=== PATIENT | male | born 1960 | race Caucasian/White ===

== ENCOUNTER 2017-04-25 21:16 | Observation (INO) ==
[2017-04-25] MEDS ORDERED: NORCO-10 PO ONE (23:00)
[2017-04-26 00:01] LABS: MANUAL DIFF NEEDED? NO
[2017-04-26 00:04] LABS: BASO% 0.3 % (0.0-0.8); EOS# 0.27 X1000 (0.0-0.7); EOS% 2.5 % (0.0-10.0); HEMATOCRIT 32.5 % (42.0-52.0); HEMOGLOBIN 10.8 g/dL (14.0-18.0); IMM GRAN# 0.03 X1000 (0.0-0.04); IMM GRAN% 0.3 % (0.0-0.5); LYMPH# 2.35 X1000 (1.2-3.4); LYMPH% 21.8 % (20.5-51.1); MCH 26.9 PG (27-31); MCHC 33.2 g/dL (33-37); MONO# 1.08 X1000 (0.11-0.59); MPV 10.7 FL (7.4-10.4); NEUT% 65.1 % (42.2-75.2); PLT 468 X1000 (130-400); RBC 4.01 XMIL (4.7-6.1)
[2017-04-26 00:39] LABS: AGAP 7; ALBUMIN 4.5 g/dL (3.5-5.0); ALKALINE PHOSPHATASE 81 U/L (32-122); BUN 30 mg/dL (8-22); CALCIUM 7.6 mg/dL (8.8-10.2); CHLORIDE 101 mmol/L (98-107); COSMO 288; GOT 15 U/L (10-34); GPT 11 U/L (10-44); LIPASE 62 U/L (13-60); POTASSIUM 3.5 mmol/L (3.5-5.1); SODIUM 141 mmol/L (136-145); TCO2 33 mmol/L (25-35); TOTAL BILIRUBIN 0.21 mg/dL (0.20-1.00); TOTAL PROTEIN 7.8 g/dL (6.3-8.3)
--- NOTE | 2017-04-26 01:02 | PROVIDER DOCUMENTATION ---
This chart was entered by Cassia Escobar Scribe, acting as scribe for Bryan Kay MD. HPI-Male Problem - General Chief Complaint: Groin Pain Stated Complaint: HERNIA PAIN Time Seen by Provider: 04/25/17 22:36 Source: patient Allergies/Adverse Reactions: Patient Allergies Allergy/AdvReac Type Severity Reaction Status Date / Time Penicillins Allergy Severe ANAPHYLAXIS Verified 04/25/17 23:17 opioids Allergy Unknown Uncoded 04/25/17 23:17 Home Medications: Home Medication List Medication Instructions Recorded Confirmed Last Taken Type Amlodipine [Norvasc] 5 mg PO DAILY #60 tablet 09/06/16 04/25/17 04/25/17 Rx Famotidine [Pepcid] 20 mg PO BID #60 tablet 09/06/16 04/25/17 04/25/17 Rx Citalopram Hydrobromide [Celexa] 20 mg PO DAILY 01/19/17 04/25/17 04/25/17 History Cyclobenzaprine [Flexeril] 10 mg PO TID 01/19/17 04/25/17 04/25/17 History Iron 18 mg PO DAILY 01/19/17 04/25/17 04/25/17 History LOVAstatin [Mevacor] 20 mg PO DAILY 01/19/17 04/25/17 04/25/17 History Meloxicam [Mobic] 15 mg PO DAILY 01/19/17 04/25/17 04/25/17 History Metformin [Glucophage] 500 mg PO BID 01/19/17 04/25/17 04/25/17 History Multivitamin [Multivitamins] 1 each PO DAILY 01/19/17 04/25/17 04/25/17 History Omeprazole 40 mg PO DAILY 01/19/17 04/25/17 04/25/17 History Ropinirole [Requip] 1 mg PO DAILY 01/19/17 04/25/17 04/25/17 History Hydrocodone/Acetaminophen [Bern 1 each PO Q4-6H PRN PRN #20 tablet 04/25/17 Unknown Rx 10-325 Tablet] - History of Present Illness-Male Nature of Presenting Problem: 56 Y/O M presents to ED with Male . Pt states that he was doing yard work stood up and suddenly felt pain in his right groin, took tramadol no help. Pt states 2 years inguinal hernia in the same location the pain is occurring. 3-4 day hx of passing black tarry stools 6-7 days. Location of Complaint: reports: groin Radiation: reports: none Quality of Pain: reports: aching Severity in ED: reports: severe Onset/Duration: reports: this evening Timing: reports: still present Context/Activities at Onset: reports: none Associated Symptoms: reports: inguinal mass Associated Symptoms: reports: denies symptoms, diarrhea Similar Symptoms Previously?: Yes Recently seen or treated by another doctor?: No Review of Systems - Adult - REVIEW OF SYSTEMS - ADULT Constitutional: denies: chills, fever Eyes: reports: no symptoms reported Ears, Nose, Mouth & Throat: reports: no symptoms reported Cardiovascular: reports: no symptoms reported Respiratory: reports: no symptoms reported Gastrointestinal: reports: rectal bleeding Genitourinary: reports: other (groin tenderness). denies: flank pain, frequent UTI's Musculoskeletal: reports: no symptoms reported Integumentary: reports: no symptoms reported Neurological: reports: no symptoms reported Psychiatric: reports: no symptoms reported Endocrine: reports: no symptoms reported Hematologic/Lymphatic: reports: no symptoms reported Allergic/Immunologic: reports: no symptoms reported All Other Systems: Reviewed and Negative Past History - Adult - PAST MEDICAL HISTORY-ADULT Review of Records: reports: Old Records Reviewed, Nursing Assessment Review, Medications Reviewed, Social history reviewed & non-contributory. Major Childhood Illnesses: reports: denies history Cardiovascular: reports: denies history Respiratory: reports: denies history Gastrointestinal: reports: denies history Obstetrical/Gynecological: reports: denies history Genitourinary: reports: denies history Musculoskeletal: reports: arthritis Neurological: reports: denies history Psychiatric: reports: denies history Endocrine/Immune: reports: denies history Other Conditions: reports: denies history - PRIOR SURGERIES/PROCEDURES Surgical/Procedure History: reports: reviewed, not pertinent - PRIOR HOSPITALIZATIONS Prior Hospitalizations: reports: for other non-related - IMMUNIZATION STATUS Childhood Immunizations: See Nurse Assessment Flu Vaccine: See Nurse Assessment - FAMILY HISTORY Family History: reviewed, not pertinent Physical Exam-General - CONSTITUTIONAL General Appearance: alert, no apparent distress - EYES Eyes: PERRL/EOMI, pink conjunctivae - HEAD, EARS, NOSE, MOUTH & THROAT HENMT: normocephalic/atraumatic, moist mucous membranes, normal ENT inspection, TMs normal, pharynx normal - NECK Neck: non-tender, full range of motion, supple, normal inspection - RESPIRATORY Respiratory: lungs clear, normal breath sounds - CARDIOVASCULAR Cardiovascular: regular rate, rhythm - GASTROINTESTINAL (ABDOMEN) Abdominal Exam: non tender, soft - GENITOURINARY Male Genitalia: inguinal tenderness (hernia noted right side) - LYMPHATIC Lymphatic: no adenopathy - MUSCULOSKELETAL Back Exam: normal inspection Extremity: normal range of motion - SKIN Integumentary: normal color, normal turgor - NEUROLOGIC Neurologic: grossly normal - PSYCHIATRIC Psych/Mental Status: normal mood/affect, normal thought content, normal thought process, oriented x 3 Progress - PLAN OF CARE/RESULTS Progress/Plan/Lab Results: Vital Signs - 8 hr 04/25/17 21:25 04/25/17 23:13 Temperature 98.1 F Pulse Rate 93 H 88 Respiratory Rate 16 16 Blood Pressure 119/71 118/68 O2 Sat by Pulse Oximetry 100 99 Laboratory Results - last 24 hr 04/25/17 04/25/17 23:30 23:30 WBC 10.78 RBC 4.01 L Hgb 10.8 L Hct 32.5 L MCV 81.0 MCH 26.9 L MCHC 33.2 RDW Std Deviation 16.5 H Plt Count 468 H MPV 10.7 H Immature Gran % (Auto) 0.3 Neut % (Auto) 65.1 Lymph % (Auto) 21.8 Davidson % (Auto) 10.0 H Eos % (Auto) 2.5 Baso % (Auto) 0.3 Immature Gran # (Auto) 0.03 Neut # (Auto) 7.02 H Lymph # (Auto) 2.35 Davidson # (Auto) 1.08 H Eos # (Auto) 0.27 Baso # (Auto) 0.03 Sodium 141 Potassium 3.5 Chloride 101 Carbon Dioxide 33 Anion Gap 7 BUN 30 H Creatinine 1.2 Estimated GFR/1.73 m2 > 60 BUN/Creatinine Ratio 25 Glucose 106 H Calculated Osmolality 288 Calcium 7.6 L Total Bilirubin 0.21 AST 15 ALT 11 Alkaline Phosphatase 81 Total Protein 7.8 Albumin 4.5 Globulin 3.3 Albumin/Globulin Ratio 1.4 Lipase 62 H Orders Category Date Time Status CBC WITH ELECTRONIC DIFF [HEME] Stat Lab 04/25/17 23:30 Completed CMP [COMPREHENSIVE METABOLIC PANEL] [CHEM] Stat Lab 04/25/17 23:30 Completed LIPASE [CHEM] Stat Lab 04/25/17 23:30 Completed TYPE & SCREEN [BBK] Stat Lab 04/25/17 23:30 Received 0.9% Sodium Chloride Inj [Ns] 80 ml Med 04/26/17 01:15 Ordered Pantoprazole [Protonix] 80 mg IV 10 mls/hr Hydrocodone/APAP 10 mg/325 mg [Bern-10] Med 04/25/17 23:00 Discontinued 1 each PO NOW ONE Pantoprazole [Protonix] 80 mg Med 04/26/17 01:03 Active 0.9% Sodium Chloride Inj [Ns] 80 ml IV NOW Result Diagrams: 04/25/17 23:30 04/25/17 23:30 Departure - Departure Date of Disposition Decision: 04/26/17 Time of Disposition Decision: 01:14 DIAGNOSIS: Right inguinal hernia, GI bleed Disposition: ADMITTED INPATIENT 09 Certified Medical Emergency: Emergent Condition: Good Prescriptions: Hydrocodone/Acetaminophen [Bern 10-325 Tablet] 1 each PO Q4-6H PRN PRN #20 tablet PRN Reason: Pain Referrals and Follow-Ups: RADHA ALVA [Primary Care Provider] - Discharge Education: Inguinal Hernia, Adult, Care After - Critical Care Note This patient required my direct & personal management of CC.: No This chart was documented by the indicated scribe, (Cassia Escobar Scribe) and accurately reflects the services I performed and decisions made by me, Bryan Kay MD, as attested by the provider's signature.
[2017-04-26] MEDS ORDERED: PROTONIX 80 MG in NS 80 ML IV ONE (01:03)
[2017-04-26] MEDS ORDERED: PROTONIX 80 MG in NS 80 ML IV SCH (01:15)
[2017-04-26] MEDS ORDERED: NS 1,000 ML IV ONE ×2 (01:41→01:45)
[2017-04-26] MEDS ORDERED: MORPHINE IV PRN (02:56)
[2017-04-26] MEDS ORDERED: HUMALOG SUBQ ONE (02:56)
[2017-04-26] MEDS ORDERED: SODIUM CHLORIDE 0.9% INJ ONE (02:56)
[2017-04-26] MEDS ORDERED: ZOFRAN IV PRN (02:56)
[2017-04-26 03:36] LABS: HEMOGLOBIN A1C 5.8 % (4.8-6.0)
[2017-04-26 04:02] LABS: FERRITIN 98 ng/mL (30-400)
[2017-04-26] MEDS: NS 1,000 ML IV SCH ×2 (04:20→12:18)
--- NOTE | 2017-04-26 04:40 | HISTORY AND PHYSICAL ---
REASON FOR ADMISSION: Passage of dark melenic stools for the last 1 week and bright red blood for the last 2-3 weeks intermittently. HISTORY OF PRESENT ILLNESS: Mr. Wagner Veras is a 56-year-old male with past medical of hypertension, CVA, reflux disease, non-obstructive coronary artery disease, who came in primarily because earlier yesterday, he was bending down to clean his storm door. As he stood up, he felt a pop and a sharp pain in his right groin with the pain shooting down his leg and had and he developed sudden numbness of his entire leg. He said the pain persisted all day yesterday, localized to his right groin, worse with movement. The aforementioned numbness in his legs resolved after a few minutes. He came to the ER because the pain had continued without any relief and it was limiting his new ambulation. During the course of the questioning in the ER, he admitted to the nurse that he had been passing black stools for the last 1 week. Even before then, he said that for the last 2-3 weeks, he had been having intermittent bright red blood. About 3 days ago, he doubled up on his Mobic prescription which is 50 mg daily to b.i.d. because of hip pain. He admits to having nausea for the last few days but no abdominal pain per se. No vomiting and no coffee grounds. No fever or chills. No cardiorespiratory complaints. He does admit to having postural lightheadedness for the last 4 days and very mild dyspnea on exertion. No bleeding from any orifice. No altered bowel movements. No weight loss. No focal weakness, numbness or tingling. No leg swelling, PND or orthopnea. He does have bilateral hip arthralgias in the morning but no joint swelling or rash elsewhere. REVIEW OF SYSTEMS: A 14-system is reviewed and negative; positive findings per HPI. ALLERGIES: Penicillin and questionable allergy to opioids, and now SHUBHAM inhibitors. MEDICATION: Norvasc 5 mg daily, Celexa 20 mg daily, Flexeril 10 mg t.i.d., Pepcid 200 mg b.i.d., hydrocodone 1 q.4 hours p.r.n., iron 80 mg daily, Mevacor 20 mg daily, meloxicam 15 mg daily, although he started taking it b.i.d., metformin 500 mg b.i.d., multivitamin tablets once a day, omeprazole 40 mg daily, and Requip 1 mg daily. PAST MEDICAL HISTORY: Includes diabetes otherwise no additional past medical history. FAMILY HISTORY: Negative for diabetes. Only notable for COPD and congestive heart failure. SOCIAL HISTORY: Now smokes E-cigarettes. No alcohol or illicit drug use. He is . PAST SURGICAL HISTORY: He has had a tonsillectomy, inguinal hernia repair on the right side, total right knee replacement, 2 hip surgeries last year, cyst that was excise on his neck. LABORATORY WORK: White count 10,000, hemoglobin 10 and hematocrit 32, platelets 468,000 with normal differential. BUN is 30, creatinine 1.2, glucose 106, lipase 62. PHYSICAL EXAMINATION: GENERAL: Middle-aged man who is not in acute distress. He is A and O x3 with normal mood and affect. HEENT: Head is normocephalic, atraumatic. Eyes, ERNIE, EOMI. He is anicteric and not pale. ENT and oropharyngeal exam is grossly normal. No central cyanosis. VITAL SIGNS: Blood pressure is 118/68, heart rate 88, respirations 16, temperature is 98.1, and 99% on room air. NECK: Supple. No JVD or carotid bruit or thyromegaly. No lymphadenopathy palpated. CHEST: Clear to auscultation with good air entry to both lung manning. CARDIOVASCULAR: First and second heart sounds heard. No gallops, murmurs, or rubs. Rhythm is regular. ABDOMEN: Protuberant, soft. There is no tenderness anywhere. No masses or organomegaly. Bowel sounds are hypoactive. RECTAL: Exam is deferred at this time. GROIN: The patient has a slight right inguinal hernia which expands with coughing. More appreciated by palpation and is reducible. No scrotal swelling. EXTREMITIES: No edema, clubbing or peripheral cyanosis. Pulses distally in all extremities are intact and symmetrical with good volume. NEUROLOGICAL: No focal deficits. SKIN: Intact with no breakdown or erythema. MUSCULOSKELETAL: Exam is grossly normal. ASSESSMENT: 1. Upper gastrointestinal bleed, probably secondary to excessive nonsteroidal anti-inflammatory drugs use. 2. hemorrhagic anemia secondary to #1. 3. Right inguinal hernia. 4. Coronary artery disease. 5. Type 2 diabetes. 6. Hypertension. 7. Hyperlipidemia. 8. Reflux disease. PLAN: At this time, we will consult Dr. Mendez, who is his software support specialist for possible EGD later today. Do repeat another hemoglobin and hematocrit q.12 hours due to this patient actively bleeding. Start patient on IV PPIs. Will transfuse if his hematocrit is 25 or less. In the interim, IV fluid bolus will be initiated and continue with crystalloid fluid replacement. We will consult Dr. Gale to see patient regarding the hernia in his right inguinal area. Other medical issues will be addressed and his blood pressure medications will be held if systolic blood pressure is less than 150 to avoid hypotension. His diabetes will be controlled with subcutaneous insulin and monitor Accu-Cheks. I will hold Celexa for awhile because as this too can affect platelet function and potential increase bleeding. Discontinue Mobic also. Anemia workup was ordered and needs to be followed. cc: Juan Griffith MD
[2017-04-26 07:38] LABS: HEMATOCRIT 32.7 % (42.0-52.0); HEMOGLOBIN 10.7 g/dL (14.0-18.0)
[2017-04-26] MEDS ORDERED: PEPCID PO SCH (09:00)
[2017-04-26] MEDS ORDERED: MEVACOR PO SCH (09:00)
[2017-04-26] MEDS ORDERED: REQUIP PO SCH (09:00)
[2017-04-26] MEDS ORDERED: THERA M PLUS PO SCH (09:00)
[2017-04-26] MEDS ORDERED: NORVASC PO SCH (09:00)
[2017-04-26] MEDS ORDERED: FERROUS SULFATE PO SCH (09:00)
--- NOTE | 2017-04-26 11:46 | Diag Imaging Result Doc PS360 ---
EXAM: CT ABD/PELVIS ORAL CONTR ONLY INDICATION: right groin pain TECHNIQUE: COMPARISON: None. FINDINGS: There are no renal or ureteral stones and there is no evidence of acute obstructive uropathy. The pelvis is partially obscured by beam hardening artifact related to right hip arthroplasty. The urinary bladder is grossly unremarkable, however. There is no evidence of a significant inguinal hernia. However, there is fat opacification near the opening of the inguinal canal on the right that is nonspecific. It may represent focal fat necrosis. This could also represent postsurgical change if there has been a prior hernia repair. There is uncomplicated diverticulosis coli. There is no evidence of bowel obstruction. No focal inflammatory changes, free abdominal gas, or free fluid is identified, otherwise. The remainder of the solid viscera of the abdomen and pelvis and the remainder of the GI tract are essentially unremarkable. IMPRESSION: 1.No significant inguinal hernia identified. However, there is nonspecific focal fat opacification near the opening of the right inguinal canal. Please see above discussion. 2.Other incidental/nonacute findings detailed above. Electronically signed by Khang Leung 04/26/2017 11:44 AM
[2017-04-26] MEDS ORDERED: PROTONIX IV SCH (12:00)
[2017-04-26] MEDS ORDERED: SODIUM CHLORIDE 0.9% INJ SCH (12:00)
--- NOTE | 2017-04-26 12:40 | CONSULTATION ---
DATE OF CONSULTATION: 04/26/2017 HISTORY AND REASON FOR CONSULTATION: For evaluation of this patient with black stool. HISTORY OF PRESENT ILLNESS: This is a 56-year-old gentleman who is known to me from office visit. The patient has history of gastritis, gastroesophageal reflux disease, diverticulosis, and history of colon polyps. The patient was brought to the emergency room because of right lower quadrant pain. At the time of evaluation in the emergency room, the patient was found to have suspected right inguinal hernia. The pain was apparently secondary to right inguinal hernia. On questioning, the patient said that he had been having some rectal bleeding for the past 1 month on and off, and on for the past 1 week he had black stools occasionally. He also said to me that he had it for only 3 days, and since yesterday there had not been any bowel movement. He said that he had bad pain in his right hip and so he doubled up on his Mobic. He was taking 15 mg a day and instead of that he took 2 of those tablets a day for a few days, and then he started having these black stools. The patient was seen by me since 2014. On 01/24/2017, for chronic anemia, he had undergone esophagogastroduodenoscopy and colonoscopy. The esophagogastroduodenoscopy revealed erosive gastritis involving the antrum and the body of the stomach. He was asked to stop all nonsteroidal anti-inflammatory agents and continue the omeprazole which he was on. The patient's colonoscopy revealed that he has significant diverticulosis of the left colon. He had no polyps this time. He also had internal hemorrhoids. PAST MEDICAL HISTORY: 1. Significant arthritis of the hips. 2. Allergic rhinitis. 3. Hypertension. 4. Obstructive sleep apnea. 5. Basal cell carcinoma of the nose. Had received treatment with radiation. 6. Restless legs syndrome. 7. Right inguina hernia with surgery. 8. Hip and knee replacement. SOCIAL HISTORY: He is a current every-day smoker. Occasionally uses alcohol. He is and living with his . FAMILY HISTORY: Father had prostate cancer. Mother had ovarian cancer. There is history of heart disease, hypertension, and history of diabetes in the family. REVIEW OF SYSTEMS: Gastrointestinal: Appetite is fair. There is no nausea or vomiting. There is some vague upper abdominal pain present. He does not have any serious constipation. Had black stools yesterday. A month ago, had seen some red blood in stool, which he thinks is from hemorrhoids. PHYSICAL EXAMINATION: Vital Signs: His temperature is 97.4 degrees, pulse rate is 82 per minute, respiratory rate is 70, and blood pressure is 115/78. Skin: Warm and dry. Mucous membranes are moist. Neck: Supple. There is no thyromegaly. Cardiac: Both heart sounds are heard. Rhythm is regular. No murmur. Lungs: Reveal a few crackles in the bases and slight hyperresonance on percussion. Abdomen: Soft, nontender, not protuberant. No masses felt. Bowel sounds are heard. On examination of the groin, there is some tenderness present, but I am not sure whether I am feeling an actual hernia. Musculoskeletal: The movement of the right hip joint is slightly limited. Extremities: Free of any edema. LABORATORY DATA: At the time of entry, the patient's WBC count was 10.78, the hemoglobin was 10.8, hematocrit 32.5. Repeat hemoglobin was 10.7 and hematocrit 32.7. The platelet count was 468,000. Sodium 141, potassium 3.5, chloride 101, CO2 is 33, BUN 30, creatinine 1.2. Glucose is 106. Hemoglobin A1c is 5.8. Calcium 7.6. Iron is 38. Ferritin 98. Total bilirubin is 0.21. AST is 15, ALT is 11. Lipase is 62. Vitamin B12 is low at 206. Folate is also low at 9. IMPRESSIONS: 1. Anemia, probably multifactorial. 2. History of black stools. RECOMMENDATION: This patient had a recent esophagogastroduodenoscopy and colonoscopy, and he was not supposed to take any nonsteroidal anti-inflammatory agents. I am sure that there was some aggravation of his erosive gastritis, which probably was the cause of the bleeding at that time. Of course, an ulcer is a possibility, but at this point, since there was recent endoscopy procedure done, there is no indication for repeating it unless the hemoglobin and hematocrit drop further. I have explained that to the patient and told him that we will watch the patient. Dr. Gale has already seen him regarding his hernia and a CT scan is being done. Based on the results of the CT scan, we will continue to follow the patient. If the hemoglobin and hematocrit drop, perhaps an esophagogastroduodenoscopy might be needed. He is already placed on the pantoprazole IV, which is appropriate. After evaluation by Dr. Gale and Dr. Walton he could go home. He needs to see me in the office next week to evaluate for any drop in Hct. to consider another EGD. Asked him to avoid any NSAIDS. cc: Cam Woody MD MTDD
--- NOTE | 2017-04-26 13:08 | CONSULTATION ---
DATE OF CONSULTATION: 04/26/2017 CHIEF COMPLAINT: Right groin pain. HISTORY OF PRESENT ILLNESS: Wagner Veras is a 56-year-old male who is well known to me. I did an anterior total hip arthroplasty on him a couple of years ago. He has continued to have some mild pain in this hip, but otherwise has done well. He initially began having severe pain in his hip with numbness in his leg, he states and that was admitted to the hospital. PHYSICAL EXAMINATION: General: Well-developed, well-nourished male. He is alert, oriented, and cooperative. There is some groin tenderness to palpation put excellent range of motion of his hip and no pain with range of motion of his hip. The leg is neurovascularly intact. His CT scan shows the prosthesis appears to be in good position. There is no sign of infection. IMPRESSION: Stable right total hip with groin pain of undetermined etiology. PLAN: From an orthopedic standpoint, he can be discharged home. He has requested tramadol which I am okay with him taking at home. He can follow up with me as an outpatient in a couple weeks to evaluate his hip, if he continues to have pain. cc: Robert Walton MD
[2017-04-26 13:14] VITALS: BP 127/75
[2017-04-26] MEDS ORDERED: TYLENOL PO PRN (13:36)
[2017-04-26] MEDS ORDERED: ULTRAM PO PRN (13:37)
--- NOTE | 2017-04-26 19:27 | DISCHARGE SUMMARY ---
ADMISSION DATE: 04/26/2017 DISCHARGE DATE: 04/26/2017 DISCHARGE DIAGNOSES: 1. Right inguinal pain, likely related to a muscle pain probably the iliopsoas. 2. Upper gastrointestinal bleed. 3. Anemia. 4. Right inguinal hernia. 5. Coronary artery disease. 6. Type 2 diabetes. 7. Hypertension. 8. Hyperlipidemia. 9. GERD. CONSULTATIONS: 1. Orthopedic surgery Dr. Walton 2. Gastroenterology Department Dr. Mendez. 3. Hand Surgery Department. HOSPITAL COURSE: A 56-year-old male with a past medical history of hypertension, CVA, GERD and coronary artery disease who came to the emergency department because of pain at the level of his right groin with the pain shooting down his leg and had developed some numbness of his entire leg, apparently everything happened after cleaning his storm door. He was bending down and then he stood up and felt a pop. Apparently also this patient has been passing black stools for the last week. Apparently he has been taking Mobic because of the pain. This patient was evaluated by gastroenterology department who states that he has been recently scoped and no further endoscopic management at this moment. He wants this patient to follow up with Dr. Mendez as an outpatient. Also, orthopedic surgery hand surgery evaluated this patient. They do not have any acute recommendations for now. I examined the patient as well and I do believe that this is a problem with the iliopsoas. He has no pain with abduction or adduction of the right lower extremity but the pain only is there if we do some flexion of the hip. He will be discharged with Tylenol and tramadol. Followup with Dr. Walton his orthopedic surgeon. PHYSICAL EXAMINATION: Temperature 98.7 degrees, pulse 85, respiratory rate 20, blood pressure 127/75, and oxygen saturation 95% on room air. HEENT: Head normocephalic. No trauma. PERRLA. Neck: Supple. No JVD. No masses. Central trachea. Chest: Clear to auscultation. No wheezing. No rales. Abdomen: Soft, nontender, nondistended. Inguinal area, he has right pain with palpation at the level of the inguinal area on the right side that increased with flexion of the hip but it is not reproducible with abduction or adduction of the hip. Extremities: No edema, clubbing and no cyanosis. Neurological: The patient is alert and oriented x3. No focal deficits. LABORATORY: Hemoglobin 10.7, hematocrit 32.7, glucose 94. FOLLOW UP: 1. Follow by with Dr. Mendez, gastroenterology, he needs to call for an appointment. 2. Follow up with Dr. Walton, from orthopedic surgery in 1 or 2 weeks if the pain persists. DISCHARGE MEDICATIONS: 1. Acetaminophen 650 mg p.o. q.6 hours as needed. 2. Tramadol 50 mg p.o. q.6 hours as needed. 3. Famotidine 20 mg p.o. twice a day. 4. Amlodipine 5 mg p.o. daily. 5. Multivitamin 1 tablet p.o. daily. 6. Iron 80 mg p.o. daily. 7. Ropinirole 1 mg p.o. daily. 8. Lovastatin 20 mg p.o. daily. 9. Metformin 500 mg twice a day. 10. Citalopram 20 mg p.o. daily. 11. Omeprazole 40 mg p.o. daily. cc: Cam Woody MD
== END 2017-04-26 14:48 | disposition home or self-care (01) ==
LOC: ED 21:16 → 3N 04-26 01:48 → INTOOBSV 04-26 01:48 → SUATTDRO 04-26 01:48
PROVIDERS: ATTEND Internal Medicine

== ENCOUNTER 2017-06-30 16:47 | Observation (INO) ==
--- NOTE | 2017-06-30 17:00 | PROVIDER DOCUMENTATION ---
HPI-General Adult - General Chief Complaint: Altered Mental Status Stated Complaint: ams +etoh Time Seen by Provider: 06/30/17 16:55 Source: patient, EMS Allergies/Adverse Reactions: Patient Allergies Allergy/AdvReac Type Severity Reaction Status Date / Time Penicillins Allergy Severe ANAPHYLAXIS Verified 06/30/17 18:43 opioids Allergy Unknown Uncoded 06/30/17 18:43 Home Medications: Home Medication List Medication Instructions Recorded Confirmed Last Taken Type Amlodipine [Norvasc] 5 mg PO DAILY #60 tablet 09/06/16 06/30/17 06/28/17 Rx Famotidine [Pepcid] 20 mg PO BID #60 tablet 09/06/16 06/30/17 06/28/17 Rx Citalopram Hydrobromide [Celexa] 20 mg PO DAILY 01/19/17 06/30/17 06/28/17 History Iron 18 mg PO DAILY 01/19/17 06/30/17 06/28/17 History LOVAstatin [Mevacor] 20 mg PO DAILY 01/19/17 06/30/17 06/28/17 History Metformin [Glucophage] 500 mg PO BID 01/19/17 06/30/17 06/28/17 History Multivitamin [Multivitamins] 1 each PO DAILY 01/19/17 06/30/17 06/28/17 History Ropinirole [Requip] 1 mg PO DAILY 01/19/17 06/30/17 06/28/17 History Acetaminophen [Tylenol] 650 mg PO Q6H PRN PRN #30 tablet 04/26/17 06/30/1706/28 Rx Omeprazole 40 mg PO DAILY #30 capsule. 04/26/17 06/30/17 06/28/17 Rx Tramadol [Ultram] 50 mg PO Q6H PRN PRN #30 tablet 04/26/17 06/30/17 06/28/17 Rx - History of Present Illness -Gen Adult Nature of Presenting Problems: CC: "Things just haven't been going right". Patient presents via ems. Call went out to them for altered mental status. Apparently he has been drinking today. Pt answers all questions appropriately but cannot tell me exactly why he called an ambulance today. He denies injury, neck pain, back pain, cp, dypsnea, abd pain, n/v, gait problems. Denies SI, HI, AVH. Associated Symptoms: denies: anxiety, arm pain, chest pain, cough, dizziness, fatigue, fever/chills, headaches, joint pain, muscle aches, nausea, seizure, shortness of breath, pain with inspiration, syncope, vomiting, weakness, trouble walking Similar Symptoms Previously?: No Recently seen or treated by another doctor?: No Review of Systems - Adult - REVIEW OF SYSTEMS - ADULT Constitutional: reports: no symptoms reported. denies: fever Eyes: reports: no symptoms reported Ears, Nose, Mouth & Throat: reports: no symptoms reported Cardiovascular: reports: no symptoms reported Respiratory: reports: no symptoms reported Gastrointestinal: reports: no symptoms reported Genitourinary: reports: no symptoms reported Musculoskeletal: reports: no symptoms reported Integumentary: reports: no symptoms reported Neurological: reports: no symptoms reported Psychiatric: reports: no symptoms reported Endocrine: reports: no symptoms reported Hematologic/Lymphatic: reports: no symptoms reported Allergic/Immunologic: reports: no symptoms reported All Other Systems: Reviewed and Negative Past History - Adult - PAST MEDICAL HISTORY-ADULT Review of Records: reports: Old Records Reviewed, Nursing Assessment Review, Medications Reviewed, Social history reviewed & non-contributory. Major Childhood Illnesses: reports: denies history Cardiovascular: reports: denies history Respiratory: reports: denies history Gastrointestinal: reports: denies history Obstetrical/Gynecological: reports: denies history Genitourinary: reports: denies history Musculoskeletal: reports: arthritis Neurological: reports: denies history Psychiatric: reports: denies history Endocrine/Immune: reports: denies history Other Conditions: reports: denies history - PRIOR SURGERIES/PROCEDURES Surgical/Procedure History: reports: reviewed, not pertinent - PRIOR HOSPITALIZATIONS Prior Hospitalizations: reports: for other non-related - IMMUNIZATION STATUS Childhood Immunizations: See Nurse Assessment Flu Vaccine: See Nurse Assessment - FAMILY HISTORY Family History: reviewed, not pertinent - SOCIAL HISTORY Smoking: denies Substance Use: none/never Alcohol Use Frequency: every day Living Situation: family Physical Exam-General - PHYSICAL EXAM-ADULT Initial Vital Signs Reviewed: Yes - CONSTITUTIONAL General Appearance: appears well, alert, no apparent distress - EYES Eyes: PERRL/EOMI, pink conjunctivae - HEAD, EARS, NOSE, MOUTH & THROAT HENMT: normocephalic/atraumatic - NECK Neck: non-tender, full range of motion, supple - RESPIRATORY Respiratory: lungs clear, normal breath sounds - CARDIOVASCULAR Cardiovascular: normal peripheral pulses, regular rate, rhythm - GASTROINTESTINAL (ABDOMEN) Abdominal Exam: non tender, soft, no organomegaly - MUSCULOSKELETAL Back Exam: normal inspection Extremity: non-tender, normal gait, normal inspection - SKIN Integumentary: normal color, normal turgor, warm/dry - NEUROLOGIC Neurologic: electronics engineering technologist II-XII nml as tested, grossly normal, no motor/sensory deficits . negative: abnormal gait - PSYCHIATRIC Psych/Mental Status: normal mood/affect, oriented x 3 Progress - PLAN OF CARE/RESULTS Progress/Plan/Lab Results: Orders Category Date Time Status Saline Loc NOW Care 06/30/17 16:48 Active CHEST-2 VIEWS [RAD] Stat Exams 06/30/17 16:[address] HEAD W/O CONTRAST [CT] Stat Exams 06/30/17 16:48 Ordered ALCOHOL BLOOD Stat Lab 06/30/17 16:48 Uncollected CBC WITH ELECTRONIC DIFF [HEME] Stat Lab 06/30/17 16:48 Uncollected CK PROFILE [SP CHEM] Stat Lab 06/30/17 16:48 Uncollected COMPREHENSIVE METABOLIC PANEL [CHEM] Stat Lab 06/30/17 16:48 Uncollected MAGNESIUM [CHEM] Stat Lab 06/30/17 16:48 Uncollected PROTIME WITH INR [COAG] Stat Lab 06/30/17 16:48 Uncollected PTT [COAG] Stat Lab 06/30/17 16:48 Uncollected TROPONIN T Stat Lab 06/30/17 16:48 Uncollected UA NIMS W/REFLEX CULT [URINALYSIS] Stat Lab 06/30/17 16:48 Uncollected URINE DRUG SCREEN Stat Lab 06/30/17 16:48 Uncollected EKG [EKG] Stat Ther 06/30/17 16:48 Ordered Result Diagrams: 06/30/17 17:45 06/30/17 17:45 - CHANGE OF SHIFT REPORT (ED Provider) Report Given and Care Transferred to:: Dr. Rodriguez Time of Transfer: 18:20 Items Pending: Labs Departure - Departure Date of Disposition Decision: 06/30/17 Time of Disposition Decision: 20:09 DIAGNOSIS: Wernicke encephalopathy, Hypomagnesemia, Alcoholism /alcohol abuse Disposition: ADMITTED INPATIENT 09 Certified Medical Emergency: Emergent Condition: Fair Referrals and Follow-Ups: RADHA ALVA [Primary Care Provider] - - Critical Care Note This patient required my direct & personal management of CC.: No Attestation - Physician/ AIDEE Attestation Patient care was provided by Advanced Practice Provider:: No The physician spent face to face time with patient:: Yes Advanced Practice Provider documentation review:: Supervising physician onsite and consulted in the evaluation and care of this patient. The physician did have a face to face encounter with the patient.
--- NOTE | 2017-06-30 17:40 | Diag Imaging Result Doc PS360 ---
CT HEAD W/O CONTRAST - 06/30/2017 INDICATION: ams TECHNIQUE: A CT dose reduction protocol was used. COMPARISON: None FINDINGS: The ventricles and sulci are normal in size and contour. No intracranial mass or hemorrhage. The skull is intact. The sinuses mastoids and middle ears are clear. IMPRESSION: Negative exam. Electronically signed by Pardeep Pizarro 06/30/2017 5:38 PM
[2017-06-30 18:04] LABS: MANUAL DIFF NEEDED? NO
[2017-06-30 18:16] LABS: BASO% 0.4 % (0.0-0.8); EOS# 0.21 X1000 (0.0-0.7); HEMATOCRIT 37.5 % (42.0-52.0); HEMOGLOBIN 12.5 g/dL (14.0-18.0); IMM GRAN# 0.02 X1000 (0.0-0.04); IMM GRAN% 0.3 % (0.0-0.5); LYMPH# 2.17 X1000 (1.2-3.4); LYMPH% 31.3 % (20.5-51.1); MCH 26.7 PG (27-31); MCHC 33.3 g/dL (33-37); MCV 80.1 FL (81-99); MONO% 14.4 % (1.7-9.3); MPV 11.4 FL (7.4-10.4); NEUT% 50.6 % (42.2-75.2); PLT 153 X1000 (130-400); RBC 4.68 XMIL (4.7-6.1)
[2017-06-30 18:19] LABS: BILIRUBIN URINE NEGATIVE (NEGATIVE); BLOOD URINE TRACE (NEGATIVE); COLOR YELLOW; GLUCOSE URINE NEGATIVE (NEGATIVE); LEUKOCYTES URINE NEGATIVE (NEGATIVE); NITRITE URINE NEGATIVE (NEGATIVE); PH URINE 6.5; PROTEIN URINE 100 mg/dL (NEGATIVE); SP GRAVITY URINE 1.015; TURBIDITY URINE CLEAR (CLEAR); URINE CULTURE NEEDED? NO; URINE MICRO REVIEW NEEDED? NO; URINE SOURCE CLEAN CATCH; UROBILINOGEN URINE 2 mg/dL (NORMAL)
[2017-06-30 18:20] LABS: UR EPITHELIAL CELLS <10 /HPF (<10); URINE BACTERIA NEGATIVE /HPF; URINE RBC <10 /HPF (<10); URINE WBC <10 /HPF (<10)
[2017-06-30 18:35] LABS: UR AMPHETAMINES MT NONE DETECTED (NONE DETECT); UR BARBITUATES MT NONE DETECTED (NONE DETECT); UR BENZODIAZ MT NONE DETECTED (NONE DETECT); UR CANNABIS MEDTOX NONE DETECTED (NONE DETECT); UR COCAINE MT NONE DETECTED (NONE DETECT); UR METHADONE MEDTOX NONE DETECTED (NONE DETECT); UR OPIATES MT NONE DETECTED (NONE DETECT); UR OXYCODONE MEDTOX NONE DETECTED (NONE DETECT); UR PCP MEDTOX NONE DETECTED (NONE DETECT)
[2017-06-30 18:39] LABS: INR 1.04; PTT 27.1 Seconds (22.0-36.0)
[2017-06-30 18:45] LABS: AGAP 20; ALBUMIN 4.4 g/dL (3.5-5.0); ALKALINE PHOSPHATASE 89 U/L (32-122); BUN 10 mg/dL (8-22); CALCIUM 7.8 mg/dL (8.8-10.2); CHLORIDE 97 mmol/L (98-107); CK PROFILE 87 U/L (24-204); COSMO 280; GOT 93 U/L (10-34); GPT 56 U/L (10-44); MAGNESIUM 0.8 mg/dL (1.5-2.7); POTASSIUM 3.3 mmol/L (3.5-5.1); SODIUM 141 mmol/L (136-145); TCO2 24 mmol/L (25-35); TOTAL BILIRUBIN 0.29 mg/dL (0.20-1.00); TOTAL PROTEIN 7.7 g/dL (6.3-8.3)
[2017-06-30] MEDS ORDERED: MAGNESIUM SULFATE 2 GM/S.W.I. 2 GM/50 ML IVPB IV ONE ×2 (18:48→20:15)
--- NOTE | 2017-06-30 19:14 | Diag Imaging Result Doc PS360 ---
CHEST-2 VIEWS - 06/30/2017 INDICATION: ams TECHNIQUE: COMPARISON: 08/15/2016 FINDINGS: The lungs are normally expanded and clear. Heart size and mediastinal contours are normal. No pneumothorax or pleural effusion. IMPRESSION: Negative exam. Electronically signed by Pardeep Pizarro 06/30/2017 7:12 PM
[2017-06-30] MEDS ORDERED: THIAMINE 100 MG in NS 50 ML IV ONE (19:15)
[2017-06-30] MEDS ORDERED: KLOR-CON PO ONE (20:16)
[2017-06-30] MEDS ORDERED: NS 1,000 ML IV ONE (21:19)
[2017-06-30] MEDS ORDERED: TYLENOL PO PRN (21:19)
[2017-06-30] MEDS ORDERED: ZOFRAN IV PRN (21:19)
[2017-06-30] MEDS ORDERED: ULTRAM PO PRN (21:19)
[2017-06-30] MEDS ORDERED: ATIVAN IV PRN (21:50)
[2017-06-30] MEDS: THIAMINE 100 MG, FOLIC ACID 1 MG, M.V.I.-12 10 ML, MAGNESIUM SULFATE 1 GM, POTASSIUM CH... IV SCH ×6 (21:52)
[2017-07-01] MEDS: DOXYCYCLINE PO SCH ×2 (00:03→23:02)
[2017-07-01] MEDS: NORVASC PO SCH ×2 (00:03→23:03)
[2017-07-01] MEDS: REQUIP PO SCH ×2 (00:03→23:02)
[2017-07-01] MEDS: LIBRIUM PO SCH ×5 (00:03→23:03)
[2017-07-01] MEDS: CELEXA PO SCH ×2 (00:04→23:02)
[2017-07-01] MEDS: THERA M PLUS PO SCH ×2 (00:04→23:02)
[2017-07-01] MEDS: MEVACOR PO SCH ×2 (00:04→23:02)
[2017-07-01] MEDS: FERROUS SULFATE PO SCH ×2 (00:04→23:02)
[2017-07-01] MEDS: GLUCOPHAGE PO SCH ×3 (00:04→23:03)
--- NOTE | 2017-07-01 02:24 | HISTORY AND PHYSICAL ---
PRIMARY CARE PROVIDER: Dr. Myranda Raphael. DATE AND TIME OF HISTORY AND PHYSICAL: 06/30/2017 at 20:30. CHIEF COMPLAINT: Altered mental status. HISTORY OF PRESENT ILLNESS: Mr. Veras is a 57-year-old, male who presented to the ER this afternoon at approximately 16:45 by EMS. Patient's family arrived home this afternoon to find him confused. They stated that the patient did not recognize his granddaughter. He did admit to drinking today. The patient states that he does have frequent alcohol use though this is not every day. He states that on the days that he does drink he drinks up to a fifth of liquor though may go a few days or a few weeks without drinking. Other than this brief period of confusion, the patient denied any other symptoms. He denied any headache, dizziness, lightheadedness, speech problems, weakness, numbness or tingling in the extremities or ataxia. The patient does report a previous history of a CVA approximately 20 years ago for which he does have some residual short-term memory problems. His , who was at bedside, did state that it is not uncommon for him to occasionally have problems with identifying friends and family. He also denied any chest pain, shortness of breath, abdominal pain, nausea, vomiting though he does report problems with chronic diarrhea and this has been ongoing for 6 years. He denies any urinary symptoms or swelling, pain, numbness or tingling in extremities. The patient was most recently admitted to the hospital on 04/26/2017 for gastrointestinal bleeding. The patient does have a previous history of erosive gastritis. He was discharged to follow up with Dr. Mendez. The patient states that since being discharged he has been seen by Dr. Mendez. Upon evaluation in the ER, the patient was found to be alert and oriented. He had no neurological deficits present at this time. A CT head was performed which showed no acute intracranial abnormalities. The patient's laboratory results did reveal hypomagnesium ans mild hypokalemia. Patient's serum alcohol was 303. Given the patient's neurological symptoms and history of alcohol abuse as well as electrolyte abnormalities, he will be admitted for further treatment and evaluation. REVIEW OF SYSTEMS: A 12 point review of systems was conducted with the patient and all negative except for pertinent positives mentioned in above HPI. PAST MEDICAL HISTORY: 1. Hypertension. 2. History of CVA approximately 20 years ago with residual deficits of occasional short-term memory problems. 3. History of gastrointestinal bleeding likely secondary to erosive gastritis and NSAID use. 4. Gastroesophageal reflux disease. 5. Nonobstructive coronary artery disease. 6. Diabetes mellitus. 7. Diverticulosis. 8. Hemorrhoids. 9. History of a postoperative MRSA infection in his right hip in March of 2016. 10. Anemia. 11. Hyperlipidemia. PAST SURGICAL HISTORY: 1. Tonsillectomy. 2. A right inguinal hernia repair. 3. A total right knee replacement. 4. Total of 8 surgeries on his right hip. The initial surgery was a right hip replacement and subsequent surgeries related to a postoperative MRSA infection. 5. A cyst removed on the right side of his neck. SOCIAL HISTORY: The patient is a current smoker of e-cigarettes though he did smoke cigarettes for 40 years and quit 6 months ago. He did state that he smoked up to 4 packs per day at one time. The patient denied any illicit drug use. He does report a long history of alcohol abuse. He states that he does not drink daily but does drink up to a few times a week. He reports that on the days that he does drink he drinks up to a fifth of liquor though may not drink for a few days or up to a few weeks. He is . He lives here in [place] and is disabled secondary to his previous knee and hip problems. FAMILY HISTORY: Positive for COPD and congestive heart failure. There is also history of prostate cancer in his father and ovarian and colon cancer in his mother. ALLERGIES: Patient reports allergies to penicillin and SHUBHAM inhibitors. There was a questionable allergy to opioids after speaking with the patient. He denied any history of this. HOME MEDICATIONS: Norvasc 5 mg p.o. daily, Celexa 20 mg p.o. daily, Pepcid 20 mg p.o. b.i.d., iron 80 mg every other day, lovastatin 20 mg p.o. daily, metformin 500 mg p.o. b.i.d., multivitamin 1 p.o. daily, omeprazole 40 mg p.o. daily, Requip 1 mg p.o. daily, and tramadol 50 mg p.o. q.6 hours p.r.n. for pain and doxycycline 100 mg p.o. daily. LABORATORY RESULTS: White blood cell count 6.93, hemoglobin 12.5, hematocrit 37.5, platelet count is 153,000. PT 11, INR 1.04, PTT is 27.1. Sodium 141, potassium 3.3, chloride 97, bicarb 24, BUN 10, creatinine 0.9, glucose 91, calcium 7.8, magnesium 0.8, total bilirubin is 0.29, AST 93, ALT 56, alkaline phosphatase 89, CK 87. Troponin less than 0.01. Serum alcohol was 303. Urine drug screen was negative. EKG showed normal sinus rhythm with nonspecific T-wave abnormality at a rate of 92 with a QTc of 464. Head CT was negative for any acute intracranial abnormality per Radiology. Chest x-ray showed no acute abnormalities as per Radiology. PHYSICAL EXAMINATION: VITAL SIGNS: Temperature 98.2 degrees, heart rate 105, blood pressure 153/98, oxygen saturation is 97% room air, respirations are 20. GENERAL: Mr. Veras is a pleasant 57-year-old male who is resting in the ER stretcher. He was in no acute distress. He was awake, alert and able to answer all questions appropriately. HEENT: Head is atraumatic, normocephalic. Pupils are equal, round, reactive to light, were 3 mm bilaterally and brisk. EOMs are intact. Subconjunctivae are pink. Oral mucosa is moist. Oropharynx is clear. NECK: Supple. Trachea midline. No carotid bruits noted on auscultation bilaterally. CARDIOVASCULAR: Patient has normal S1, S2. No murmurs, gallops, rubs appreciated with a regular rate and rhythm. PULMONARY: Patient has symmetrical chest expansion bilaterally. Lung sounds are clear to auscultation in bilateral full manning. ABDOMEN: Soft, nontender, nondistended. Bowel sounds are present in all 4 quadrants. EXTREMITIES: No cyanosis, clubbing, or edema noted. Pulse, motor and sensory are intact in all extremities. Pedal pulses are 3+ bilaterally. INTEGUMENTARY: Patient's skin is pink, warm, and dry. Patient does have a lesion noted to his chin just inferior to his lower lip that does have espinal brown crusting noted. NEUROLOGICAL: Patient is alert and oriented x4. Cranial nerves 2-12 are grossly intact. The patient has no visual disturbances noted upon exam. No facial droop noted. No arm drift noted. He has equal muscle strength and hand grasp bilaterally and reports no sensory deficits upon exam. ASSESSMENT AND PLAN: 1. Encephalopathy. At this time the patient's previous reported symptoms of confusion have resolved. Though given the patient's alcohol abuse, this could likely be related to Wernicke's encephalopathy though he does have a history of CVA as well. We will continue to monitor the patient's neurological status closely. We will do neuro checks. He has been given a dose of 100 mg of thiamine IV in the ER. We will continue this q.24 hours and we will continue to follow closely. 2. Alcohol abuse. This could likely be the cause of the patient's confusion. We did chief counsel the patient to quit drinking. He sts that he is willing to consider outpatient treatment but did not make any definite statements that he was going to quit. We will go ahead and start him on Librium 50 mg q.6 hours as well as Ativan p.r.n. for alcohol withdrawal. We will do seizure precautions given that the patient reported that he has had previous seizures with alcohol withdrawal. 3. Hypomagnesemia. This is likely secondary to the patient's alcohol abuse. He has been given a total of 4 g of magnesium sulfate and we will repeat a magnesium level in the morning. 4. Hypokalemia. He has been given 40 mEq of potassium chloride p.o. We will recheck in the morning. 5. Hypertension. We will continue his Norvasc. 6. Hyperlipidemia. We will continue his lovastatin. 7. Diabetes mellitus. We will continue his metformin. 8. Anemia. The patient does have a history of iron-deficiency anemia. We will continue his ferrous sulfate. His labs appear to be stable at this time and we will continue to monitor. 9. Gastroesophageal reflux disease. We will continue his Pepcid and omeprazole. 10. Nicotine dependence. We have ordered a NicoDerm patch placed and we will continue to chief counsel him on smoking cessation throughout his visit and upon discharge. 11. History of postoperative methicillin-resistant Staphylococcus aureus infection of his right hip. We will continue his doxycycline. 12. Impetigo of the patient's chin just inferior to his lower lip. The patient placed on medical floor telemetry. DVT prophylaxis provided with SCDs. We did place a elementary school social worker consult for the patient to receive further information for substance abuse treatment options upon discharge. Further orders and recommendations pending hospital course, diagnostic studies, and physician evaluation. Dictated by JOSÉ MIGUEL Pedersen for Eddie Iraheta MD cc: Eddie Iraheta MD pt seen face to face, examined, abdominal exam was nonfocal, neurologic exam was nonfocal, discusssed with patient about chronic alcohol abuse for which he does not feel is an major issue, there is a concern over wernicke's encephalopathy which will treat and ascertain if that is a clinically revelant issue, we will supplement magenesium and potassium as well, otherwise agree with above plan as discussed with JOSÉ MIGUEL DUMONT
[2017-07-01] MEDS: NICODERM PATCH TD SCH (02:51)
[2017-07-01] MEDS: PRILOSEC PO SCH (06:13)
[2017-07-01 07:04] LABS: BASO% 0.4 % (0.0-0.8); EOS# 0.31 X1000 (0.0-0.7); EOS% 5.5 % (0.0-10.0); HEMATOCRIT 33.4 % (42.0-52.0); LYMPH# 1.29 X1000 (1.2-3.4); LYMPH% 23.1 % (20.5-51.1); MANUAL DIFF NEEDED? NO; MCH 26.8 PG (27-31); MCHC 32.9 g/dL (33-37); MCV 81.5 FL (81-99); MONO# 0.69 X1000 (0.11-0.59); MONO% 12.3 % (1.7-9.3); MPV 12.3 FL (7.4-10.4); NEUT% 58.7 % (42.2-75.2); PLT 97 X1000 (130-400)
[2017-07-01 07:19] LABS: AGAP 14; ALBUMIN 3.9 g/dL (3.5-5.0); ALKALINE PHOSPHATASE 82 U/L (32-122); BUN 11 mg/dL (8-22); CALCIUM 7.7 mg/dL (8.8-10.2); CHLORIDE 97 mmol/L (98-107); COSMO 276; GOT 77 U/L (10-34); GPT 53 U/L (10-44); MAGNESIUM 1.6 mg/dL (1.5-2.7); POTASSIUM 3.4 mmol/L (3.5-5.1); SODIUM 139 mmol/L (136-145); TCO2 28 mmol/L (25-35); TOTAL BILIRUBIN 0.31 mg/dL (0.20-1.00); TOTAL PROTEIN 6.7 g/dL (6.3-8.3)
[2017-07-01] MEDS ORDERED: NORVASC PO SCH (09:00)
[2017-07-01] MEDS ORDERED: THERA M PLUS PO SCH (09:00)
[2017-07-01] MEDS ORDERED: DOXYCYCLINE PO SCH (09:00)
[2017-07-01] MEDS ORDERED: CELEXA PO SCH (09:00)
[2017-07-01] MEDS ORDERED: REQUIP PO SCH (09:00)
[2017-07-01] MEDS ORDERED: FERROUS SULFATE PO SCH (09:00)
[2017-07-01] MEDS ORDERED: MEVACOR PO SCH (09:00)
--- NOTE | 2017-07-01 12:34 | PROGRESS NOTE ---
DATE: 07/01/2017 SUBJECTIVE: This morning Mr. Veras referred to be doing a little better. Mentation has significantly improved. OBJECTIVE: Vital signs: Blood pressure is 122/72, pulse of 87, respirations 22, temperature is 97.4 degrees. Patient is saturating 95% on room air. General: Mr. Veras is a 57-year-old male. He is in bed. Does not seem to be in any remarkable distress. He is normal weight with a BMI of 20.5. HEENT: Mucosa is pink and moist. Anicteric. Acyanotic. Neck: Supple. Chest: Good air entry bilateral. A few faint distant wheezes bilaterally. No crepitations. Cardiovascular: Regular rate and rhythm. No murmurs. No rubs. No gallops. Abdomen: Soft. Slightly distended but nontender. Bowel sounds are present. Extremities: No pedal edema. TRANSITION MGR: Patient is awake, alert, and oriented x4. There is no focal neurological deficit. LABORATORY DATA: WBC. 5.59, hemoglobin is 11.0, platelet count of 97,000. Chemistries reviewed. Sodium is 139, potassium is 3.4, magnesium is 1.6, it was 0.8 on admission. ASSESSMENT: 1. Altered mental status on presentation, likely secondary to toxic encephalopathy. This seems to be resolving. 2. Alcohol intoxication on presentation. The alcohol level was 303. His mentation is a whole lot better now. 3. Multi-mineral deficiency (hypokalemia, hypomagnesemia). Likely due to nutritional deficiencies. 4. Alcohol-induced liver injury, noted. 5. Diabetes mellitus, on metformin. 6. Hypertension. 7. Dyslipidemia. 8. Thrombocytopenia. Likely due to alcohol side effects. PLAN: In general, I think Mr. Veras's mentation is progressively improving. According to him, the last time this happened to him. He had a stroke. Presenting CT scan was unremarkable. We will do an MRI to make sure there was no stroke to his presentation. Of course, patient does not have any focal neurological deficit but he insists that this is the same presentation he had the last time when he was told he had a CVA. The patient has been advised extensively on alcohol cessation and also encouraged him to continue abstinence from tobacco. cc: Gurdeep Jon MD
[2017-07-01] MEDS: THIAMINE 100 MG, FOLIC ACID 1 MG, M.V.I.-12 10 ML, MAGNESIUM SULFATE 1 GM, POTASSIUM CH... IV SCH ×6 (23:15)
[2017-07-02] MEDS: LIBRIUM PO SCH ×2 (04:03→08:48)
[2017-07-02] MEDS: NICODERM PATCH TD SCH (04:03)
[2017-07-02 06:28] LABS: MANUAL DIFF NEEDED? NO
[2017-07-02 06:52] LABS: BASO% 0.4 % (0.0-0.8); EOS# 0.21 X1000 (0.0-0.7); EOS% 4.2 % (0.0-10.0); HEMATOCRIT 32.4 % (42.0-52.0); HEMOGLOBIN 10.5 g/dL (14.0-18.0); LYMPH# 1.23 X1000 (1.2-3.4); LYMPH% 24.6 % (20.5-51.1); MCH 26.6 PG (27-31); MCHC 32.4 g/dL (33-37); MCV 82.2 FL (81-99); MONO# 0.89 X1000 (0.11-0.59); MONO% 17.8 % (1.7-9.3); MPV 12.5 FL (7.4-10.4); PLT 130 X1000 (130-400); RBC 3.94 XMIL (4.7-6.1)
[2017-07-02] MEDS: PRILOSEC PO SCH (06:55)
[2017-07-02 06:59] LABS: AGAP 14; ALBUMIN 3.6 g/dL (3.5-5.0); ALKALINE PHOSPHATASE 87 U/L (32-122); BUN 13 mg/dL (8-22); CALCIUM 8.3 mg/dL (8.8-10.2); CHLORIDE 99 mmol/L (98-107); COSMO 281; GOT 34 U/L (10-34); GPT 34 U/L (10-44); MAGNESIUM 1.4 mg/dL (1.5-2.7); POTASSIUM 3.9 mmol/L (3.5-5.1); SODIUM 141 mmol/L (136-145); TCO2 28 mmol/L (25-35); TOTAL BILIRUBIN 0.29 mg/dL (0.20-1.00); TOTAL PROTEIN 6.2 g/dL (6.3-8.3)
[2017-07-02 07:16] VITALS: BP 131/63
--- NOTE | 2017-07-02 07:24 | EKG Report ---
Test Performed on : 06/30/2017 5:22:44 PM Test Reason : Chest Pain Blood Pressure : / mmHG Vent. Rate : 092 BPM Atrial Rate : 092 BPM P-R Int : 114 ms QRS Dur : 086 ms QT Int : 376 ms P-R-T Axes : 045 011 043 degrees QTc Int : 464 ms Normal sinus rhythm. Nonspecific T wave abnormality Abnormal ECG When compared with ECG of 19-DEC-2016 10:17, No significant change was found Unconfirmed Result
[2017-07-02] MEDS: GLUCOPHAGE PO SCH (08:48)
--- NOTE | 2017-07-02 12:29 | Diag Imaging Result Doc PS360 ---
EXAM: MRI BRAIN W/O CONTRAST HISTORY: AMS TECHNIQUE: MRI of the brain: T1 axial and sagittal, T2, FLAIR, DWI axial, gradient echo coronal. COMMENT: There is no evidence of restricted diffusion. There is no evidence of bleed or abnormal extra-axial fluid collection. There are punctate and patchy areas of increased T2-weighted signal intensity in the subcortical white matter of the left frontal lobe and adjacent to the left atrium of the lateral ventricle. There are no previous MRI studies available for comparison. IMPRESSION: No evidence of acute intracranial disease. Chronic microvascular white matter changes. Electronically signed by Mundo Oliva 07/02/2017 12:27 PM
[2017-07-02] MEDS ORDERED: LIBRIUM PO SCH (15:00)
--- NOTE | 2017-07-03 10:21 | DISCHARGE SUMMARY ---
ADMISSION DATE: 06/30/2017 DISCHARGE DATE: 07/02/2017 CONSULTATIONS: None. PERTINENT PROCEDURES: On 06/[address] was negative. On 07/02 brain MRI showed no evidence of acute intracranial disease. Chronic microvascular white matter changes. DISCHARGE DIAGNOSES: 1. Altered mental status on presentation secondary to toxic encephalopathy, resolved. 2. Alcohol intoxication on presentation, alcohol level was 303; mentation improved. 3. Multi-mineral deficiency hypokalemia, hypomagnesium secondary to nutritional deficiencies. 4. Alcohol-induced liver injury noted. 5. Diabetes mellitus, on metformin. 6. Hypertension. Continue home medications. 7. Dyslipidemia. Continue home medications. 8. 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 HOSPITAL COURSE: Mr. Veras is a 57-year-old male who presented to the ED on the afternoon of 06/30/2017 at 1645 by EMS. The patient's family arrived at home in the afternoon to find him confused. He did not recognize his granddaughter. He did admit to drinking. The patient states that he does have frequent alcohol use, though it is not every day. He states that on the days that he does drink, he drinks up to a 5th of liquor. He can go a few days or a few weeks without drinking. Other than this brief period of confusion, the patient denied any other symptoms. The patient reported a previous history of CVA 20 years ago. He does have some residual short-term memory problems. His at the bedside stated that it was not uncommon for him to occasionally have problems identifying friends and family. His most recently admitted to the hospital on 04/26/2017 for a GI bleed. He does have a previous history of erosive gastritis. In the ED, he was found to be alert and oriented with no neurological deficits. CT of the head was performed that showed no acute intracranial abnormalities. Laboratory data revealed hypomagnesium, mild hypokalemia. The patient's serum alcohol was 303. Given his neurological symptoms, history of alcohol abuse, as well as electrolyte abnormalities, he was admitted for further treatment and evaluation. We did corporate travel counselor the patient on alcohol abstinence and he stated that he was willing to consider outpatient treatment. He was started on Librium as well as p.r.n. Ativan for any signs of alcohol withdrawal and seizure precautions and watched closely for DTs. For his nicotine dependence we also did daily smoking cessation. Given his history of CVA, we did a brain MRI that was negative. Mr. Veras has remained stable since his admission. He is being discharged back home with family. professional services consultant has provided the patient with information for outpatient alcohol treatment program. VITAL SIGNS: At time of discharge, temperature is 98 degrees, heart rate 70, respirations 18, blood pressure 131/63, O2 is 99% on room air. DISCHARGE DIET: Healthy heart. DISCHARGE MEDICATIONS: As per Dr. Jon: 1. Tylenol 650 mg p.o. q.6 hours p.r.n. 2. Norvasc 5 mg p.o. daily. 3. Librium 50 mg p.o. q.6 hours. 4. Celexa 20 mg p.o. daily. 5. Pepcid 20 mg p.o. b.i.d. 6. Iron 18 mg p.o. daily. 7. Mevacor 20 mg p.o. daily. 8. Glucophage 500 mg p.o. b.i.d. 9. Multivitamin 1 each p.o. daily. 10. Prilosec 40 mg p.o. daily. 11. Requip 1 mg p.o. daily. 12. Ultram 50 mg p.o. q.6 hours p.r.n. FOLLOW UP: Mr. Veras is being discharged home back with family. He is to follow up with his primary care physician, JOSÉ MIGUEL Nolasco, in 1 week. He has been instructed on abstinence of alcohol as well as smoking cessation as well as the means to quit. He has been given information on outpatient alcohol treatment programs. He can return to the ED for any worsening of symptoms. Dictated by JOSÉ MIGUEL Russell for Gurdeep Jon MD cc: MD Myranda Howard CRNP
== END 2017-07-02 15:32 | disposition home or self-care (01) ==
LOC: ED 16:47 → INTOOBSV 20:38 → 3N 20:38 → SUATTDRO 20:38 → 3N 21:14
PROVIDERS: ATTEND Internal Medicine